=== PATIENT | female | born 1980 | race Caucasian/White ===

== ENCOUNTER 2018-10-13 14:57 | Emergency (ER) | payer OTHER ==
[~2018-10-13] VITALS: Ht 149.9 cm; Wt 62.0 kg
[2018-10-13] MEDS ORDERED: ZIPRASIDONE 20 MG INJ IM ONE ×3 (15:17→16:30)
--- NOTE | 2018-10-13 15:18 | NUR ---
MEDICATED PER EMAR FOR CONTINUED AGITATION
--- NOTE | 2018-10-13 15:25 | NUR ---
ATTEMPTED TO MEDICATE-HOWEVER PATIENT MAKING CLAIMS THAT "IT WILL BE BAD FOR THE BABY." FILTER TENDER HELD ADMINISTRATION -CLARIFIED W/ PROVIDER/PHARMACIST
--- NOTE | 2018-10-13 15:36 | NUR ---
LABS DRAWN FROM EMS PIV-SENT AT [id number]
[2018-10-13 15:54] LABS: BASOPHILS # (AUTO) 0.04 x10^3/uL (0-0.1); BASOPHILS % (AUTO) 1 % (0-1); EOSINOPHILS # (AUTO) 0.13 x10^3/uL (0-0.4); EOSINOPHILS % (AUTO) 2 % (1-7); LYMPHOCYTES # (AUTO) 2.57 x10^3/uL (1-3.4); LYMPHOCYTES % (AUTO) 31 % (22-44); MD NO; MEAN CORPUSCULAR HEMOGLOBIN 29.5 pg (27.0-34.8); MEAN CORPUSCULAR HGB CONC 32.5 g/dL (32.4-35.8); MEAN CORPUSCULAR VOLUME 90.8 fL (80-100); MEAN PLATELET VOLUME 8.9 fL (7.4-10.4); MONOCYTES # (AUTO) 0.85 x10^3/uL (0.2-0.8); MONOCYTES % (AUTO) 10 % (2-9); NEUTROPHILS # (AUTO) 4.63 x10^3/uL (1.8-6.8); NEUTROPHILS % (AUTO) 56 % (42-75); PLATELET COUNT 223 x10^3/uL (130-400); RED BLOOD COUNT 4.08 x10^6/uL (3.82-5.3); RED CELL DISTRIBUTION WIDTH 15.2 % (9.6-15.2)
[2018-10-13 15:59] LABS: ALANINE AMINOTRANSFERASE 73 U/L (12-78); ALBUMIN 3.9 g/dL (3.4-5.0); ANION GAP 8 mmol/L (5-15); CALCIUM 8.9 mg/dL (8.5-10.1); CHLORIDE 110 mmol/L (98-107); CREATININE 0.82 mg/dL (0.55-1.02)
--- NOTE | 2018-10-13 15:59 | NUR ---
REPORT TO HERLINDA ELMORE
[2018-10-13 16:03] LABS: ALKALINE PHOSPHATASE 81 U/L (45-117); BILIRUBIN,TOTAL 0.4 mg/dL (0.2-1.0); TOTAL PROTEIN 7.2 g/dL (6.4-8.2)
--- NOTE | 2018-10-13 16:13 | NUR ---
AFTER REVIEW OF LABS, PT MEDICATED ORDERED.
--- NOTE | 2018-10-13 16:30 | NUR ---
BREAK RN: PT SITTING UP ON GURNEY, CONT WITH RAMBLING SPEECH. STATES "I'M MAD AT YOU, YOU GAVE ME THAT SHOT AND NOW I DONT FEEL GOOD." PT SR PER MONITOR, AUTO BP AND PULSE OX IN PLACE. [facility] OFFICER AT BEDSIDE. AWAITING FURTHER DISPOSITION.
--- NOTE | 2018-10-13 17:44 | NUR ---
PATIENT NOW CALM/INTERACTIVE TOLERATING PO FLUIDS 90, 110/72
[2018-10-13 18:23] VITALS: BP 106/56
== END 2018-10-13 18:25 | disposition home or self-care (01) ==
LOC: ED 15:51
DX: G92 Toxic encephalopathy (principal)
CPT/HCPCS: 36415; 80053; 83605; 83690; 84703; 85025; 96372; 99283; J3486

== ENCOUNTER 2019-01-27 15:44 | Emergency (ER) | payer SELFPAY ==
--- NOTE | 2019-01-27 15:46 | NUR ---
PT IS REFUSING TO GET INTO GOWN, SIT ON THE BED, AND ALL ASSESSMENTS. PER LAM, PT USED METH YESTERDAY. PT AMBULATED TO RESTROOM WITH STEADY GAIT. PT IS FIDGITY AND ANXIOUS AND DOES NOT WANT TO BE HERE. Addendum: 01/27/19 at 1556 by [email or web address] PT FOUND WALKING ON FREEWAY BY DOROTHY HERNANDEZ. LAM WAS CALLED TO BRING PT TO HOSPITAL. PT TALKS NON-STOP, WITHOUT HARDLY TAKING A BREATH.
--- NOTE | 2019-01-27 16:03 | NUR ---
PT REFUSED ASSESSMENT BY MD. REFUSING TO GET ONTO GURNEY AND VITAL SIGNS. REFUSING CARE FROM EDMD. PT REFUSING TO LEAVE, SECURITY CALLED FOR ASSISTANCE.
--- NOTE | 2019-01-27 16:43 | NUR ---
PT REFUSED TO LEAVE WHEN SECURITY ARRIVED. AFTER SOME TIME AND PT YELLING, SECURITY CALLED [facility] TO REMOVE PT FROM PREMISIS FOR TRESPASSING. [facility] ARRIVED, TOOK PT INTO CUSTODY, AND REMOVED PT FROM FACILITY. ALL PAPERWORK WAS GIVEN TO [facility].
--- NOTE | 2019-01-27 16:49 | NUR ---
jenny LOR [id number] SIGNED AMA FORM. PER RPMilli, PT HAS A PENDING WARRANT OF ARREST.
== END 2019-01-27 16:46 | disposition home or self-care (01) ==
LOC: ED 16:40
DX: F15.90 Other stimulant use, unspecified, uncomplicated (principal)
CPT/HCPCS: 99283